=== PATIENT | female | born 1970 | race Caucasian/White ===

== ENCOUNTER 2016-12-25 06:34 | Day surgery (SDC) | payer OTHER ==
[2016-12-25] VITALS (12 sets, daily range): BP systolic 117–143; BP diastolic 62–96; PULSE 70–85; RESP 1–18; O2SAT 97–100
[~2016-12-25] VITALS: Ht 162.6 cm; Wt 62.1 kg
[2016-12-25] MEDS: Lactated Ringer's 1,000 ML IV SCH ×2 (06:14→08:19)
[~2016-12-25 06:34] MED LIST: ALPR0.5T8 PO; ASPI-973 PO; BUPR300T51 PO; CeFAZolin Inj 2 GM in IV Premix 1 EACH IV ONE; FERR325T39 PO; OMEP20CA11 PO; SULF1TAB34 PO
[2016-12-25] MEDS ORDERED: Rocuronium 10 mg/mL 5 mL Inj ONE (06:35)
[2016-12-25] MEDS ORDERED: fentaNYL-PF 50 mCg/mL 2 mL Inj ONE (06:35)
[2016-12-25] MEDS ORDERED: Glycopyrrolate 0.2 mg/mL 5 mL Inj ONE (06:35)
[2016-12-25] MEDS ORDERED: Dexamethasone 4 mg/mL Inj ONE (06:35)
[2016-12-25] MEDS ORDERED: Neostigmine 1 mg/mL 5 mL Inj ONE (06:35)
[2016-12-25] MEDS ORDERED: Propofol 10,000 mCg/mL 20 mL Inj ONE (06:35)
[2016-12-25] MEDS ORDERED: CeFAZolin Inj 2 gm / 50mL D5W IV ONE (06:42)
--- NOTE | 2016-12-25 08:23 | PCM.HPANE ---
Patient Data Surgeon Admitting Provider: Attending Provider:Nereida Luevano MD Primary Care Physician:Katheryn Rogel PA-C Other Provider: Reason for Visit Umbilical Hernia Ht/WT & BMI Height (Feet): 5 Height (Inches): 4.00 Weight (Kilograms): 62.1 Body Mass Index 23.00 Allergies Coded Allergies: doxycycline (Verified Allergy, Unknown, 12/23/16) hydroxyzine (Verified Allergy, Unknown, 12/23/16) latex (Verified Allergy, Unknown, 12/23/16) Past Anesthesia History Anesthesia History: Positive for:: Anesthesia Reactions (vomiting post surgery for bone in throat- not helped by meds), Denies:: Abnormal Airway, Difficult Intubation, Fam Anesthesia Reaction Diabetes History Hx Diabetes?: No MRSA MRSA: No Medications Blood Thinner: Aspirin Hypertension Medication: No Home Meds Incl Beta Angely: No Reported Medications Omeprazole 20 Mg Capsule.dr40 Mg PO DAILY Ref 0 12/23/16 Sulfamethoxazole/Trimeth 400-80 mg (Bactrim 400-80 mg)1 Each Tablet1 Tablet PO BID Ref 0 12/23/16 Ferrous Sulfate (Iron)325 Mg [id number] Mg PO DAILY 12/23/16 Bupropion ER (Wellbutrin XL)300 Mg Tab.er.[id number] Mg PO DAILY Ref 0 12/23/16 Aspirin 81 Mg [id number] Mg PO DAILY Ref 0 12/23/16 Alprazolam 0.5 Mg Tablet0.5 Mg PO BID PRN For Anxiety Ref 0 12/23/16 History HEENT History: Positive for:: TMJ (wears nightguard) Denies:: Abnormal Airway Cataracts Difficult Intubation Dysphagia Glaucoma Hearing Problem Sinus Problem Cardiovascular History: Positive for:: Heart Murmur (from childhood) Denies:: AICD Abdominal Aortic Aneurism Atrial Fibrillation Cardiac Surgery Chest Pain Congestive Heart Failure Coronary Artery Disease Edema Hypertension Irregular Heartbeat Pacemaker Peripheral Vascular Rheumatic Fever Thrombophlebitis Valvular Heart Disease Hx of Respiratory Problem?: No Respiratory History: Denies:: Asthma COPD Emphysema Oxygen Administration Pneumonia Tuberculosis Use of C-PAP Machine Use of Inhalers / NEBS Hx Neurologic Problems?: Yes Neurological History: Positive for:: CVA (at age 19- stroke vs complicate migraine) Headaches (migraines during ) Denies:: Dizziness Multiple Sclerosis Parkinson's Disease Seizures TIA Hx of GI Problems?: Yes Gastrointestinal History: Positive for:: Gastroesphageal Reflux Heartburn Denies:: Cirrhosis Diverticulitis Gall Bladder Disease Gastrointestinal Bleeding Hepatitis Hiatal Hernia Liver Disease Other GI Pertinent History: recurrent umbilical hernia current admission problem Hx of Problems?: No Genitourinary History: Denies:: Kidney Stones Urinary Tract Infection Female Hx: Denies:: Currently Problems with Breasts? Skin History: Denies:: History Skin Disorders? Pressure Ulcers Hx Musculoskeletal Problems?: No Musculoskeletal History: Denies:: Back Injury Degenerative Joint Fibromyalgia Musculoskeletal Trauma Myasthenia Gravis Osteoarthritis Rheumatoid Arthritis Systemic Lupus Hx of Psycho/Social Problems?: Yes Psycho Social History: Positive for:: Anxiety Denies:: Hx Depression Hx Surgeries?: Yes (D+C, C sections, umb hernia, tubal, resection oral bone ) Hx Any Other Health Problems?: Yes Other History: Denies:: Cancer Thyroid Disease History Blood Transfusions: Positive for:: Accept Blood Products? Denies:: Blood Transfusions Hx Diabetes: No Hx Alcohol Use: YesAlcoholic Drinks Per Day: 2-3 drinks weeklyHx Substance Use : NoHave You Smoked inLast 12 mo: No Stop/Bang S-Snoring: Do You Snore Loudly: No T-Tired: feel tired, fatigued: No O-Obsered: Observed not breath: No P-Blood Pressure: treated: No B- Body Mass Index > 35 kg/m2: No A- Age over 50: No N- Neck Large Circumference: No G- Gender Male: No AMRITA Total Score: 0 AMRITA Risk Assessment: Low Risk, <3 Yes Risk Assessment Category Category 1A: Patient has history of documented sleep apnea, and HAS NOT received any narcotic, sedative or anesthesia administration during this stay. Category 1B: Patient has history of documented sleep apnea, and HAS received any narcotic , sedative or anesthesia administration during this stay Category 2: Patient has SUSPECTED Obstructive Sleep Apnea, and HAS received any narcotic , sedative or anesthesia administration during this stay. Category 3: Patient has SUSPECTED Obstructive Sleep Apnea and HAS NOT received narcotic, sedative or anesthesia administration during this stay. Category 4: Outpatient in Procedural Areas with known sleep apnea or who screen positive for High Risk via the STOP/BANG questionnaire. Exam Exam Vital Signs Vital Signs Date Time Temp Pulse Resp B/P Pulse Ox O2 Delivery O2 Flow Rate FiO2 12/25/16 07:11 36.3 84 16 121/71 100 Room Air General Appearance: Alert HEENT/AIRWAY: MP 1 Lungs: Clear to Auscultation Heart: Exam Unremarkable Meds/Labs/Diagnostics Admission Meds Current Medications Lactated Ringer's (Lr) 1,000 ml @ 120 mls/hr [id number] IV Last administered on t 06:14; Start 12/25/16 at 05:00; Stop 12/25/16 at 13:19 Plan Impression Patient chart reviewed, patient interviewed and anesthestic plan with risks, benefits, and alternatives discussed, and informed consent obtained. NPO Status: 12/24 at 1999 ASA Physical Status: ASA2 Mod Systemic Disease Anesthetic Plan: GA Bene/Risks/Altern/Consents: Yes HP Complete Prior to Induction: Yes Fady Nguyen MD Dec 25, 2016 08:23
[2016-12-25] MEDS ORDERED: Lactated Ringer's 500 ML IV PRN (08:47)
[2016-12-25] MEDS ORDERED: Lactated Ringer's 1,000 ML IV SCH (08:47)
[2016-12-25] MEDS ORDERED: Dexamethasone 4 mg/mL Inj IVPUSH PRN (08:50)
[2016-12-25] MEDS ORDERED: Bupivacaine-MPF 0.5% W/EPI 30 mL Inj INFILTRATE ONE (08:50)
[2016-12-25] MEDS ORDERED: MetoCLOpramide 5 mg/mL 2 mL Inj IVPUSH PRN (08:50)
[2016-12-25] MEDS ORDERED: EPHEDrine Sulfate 50 mg/mL Inj IVPUSH PRN (08:50)
[2016-12-25] MEDS ORDERED: Ondansetron 2 mg/mL 2 mL Inj IVPUSH PRN (08:50)
[2016-12-25] MEDS ORDERED: Labetalol 5 mg/mL 4 mL Inj IV PRN (08:50)
[2016-12-25] MEDS ORDERED: Phenylephrine 10,000 mCg/mL Inj IVPUSH PRN (08:50)
[2016-12-25] MEDS ORDERED: Atropine 0.4 mg/mL Inj IVPUSH PRN (08:50)
--- NOTE | 2016-12-25 10:11 | PCM.ANEP1 ---
Post Anesthesia Phase 1 PACU Phase 1 Assessment Vital Signs Vital Signs Date Time Temp Pulse Resp B/P Pulse Ox O2 Delivery O2 Flow Rate FiO2 12/25/16 07:11 36.3 84 16 121/71 100 Room Air Anesthetic Administered: GA Level of Alertness: Drowsy, not talking HENDERSON's with Equal Strength: Yes Pain: No Nausea or Vomiting: No Airway Device: Endotrachial Tube Oxygen Delivery: Nasal Cannula Lungs: Clear to Auscultation Dermatome Level: Full Sensation Summary doing well p 96 sat 100 t 36.1 142/96 Fady Nguyen MD Dec 25, 2016 10:10
[2016-12-25] MEDS ORDERED: oxyCODONE-Acetamin 5-325 mg Tablet PO PRN (10:15)
[2016-12-25] MEDS: fentaNYL-PF 50 mCg/mL 2 mL Inj IVPUSH PRN ×2 (10:21→10:30)
--- NOTE | 2016-12-25 10:25 | PCM.SURGOP ---
Surgical Operative Report Date of Service: Dec 25, 2016 Pre Operative Diagnosis Recurrent umbilical hernia Post Operative Diagnosis Recurrent umbilical hernia 2 Procedure: Laparoscopic recurrent umbilical hernia repair Surgeon and Blue Line Trimmer: Surgeon: Nereida Luevano M.D. Assistants: Christiano Bailye PA-C; Susanna Perez, MS3 Indication for Procedure This is a 46-year-old woman who underwent primary umbilical hernia repair several years ago at a hospital on the [facility]. She experienced a recurrent bulge and tenderness at the umbilicus, particularly when performing vigorous activities like chopping wood. She therefore desired repair. Findings: 1. There were 2 tiny defects. The first was at the level of the umbilicus, 0.5 cm fascial defect. The second was 1 cm inferior to the first, 0.5 cm fascial defect. 2. Primary closure of the fascial defects was performed. Mesh was placed with 5 cm of overlap in all directions. Procedure Details The patient was brought to the operating room and placed in supine position. General endotracheal anesthesia was smoothly induced. Antibiotics were infused. A warming blanket and SCDs were placed. The operative field was prepped and draped in sterile fashion. A Chau had been placed. A pause was performed to confirm the correct patient, procedure, site, and side. A Veress needle was placed in the left upper quadrant of the abdomen was insufflated. An Optiview trocar was then used with an 11 mm port to enter the abdomen. Two additional 5 mm ports are placed in the left midabdomen and left lower quadrant. 2 umbilical hernia defects were identified, one at the level of the umbilicus and the other 1 cm inferior to it. Each was 0.5 cm in size, with no incarceration of fat or viscera. A single interrupted 2-0 PDS stitch was placed to close both defects using a laparoscopic fascial closure device. Once the defects were closed, a piece of mesh was fashioned to place deep to them. A circular 11 cm Ventralight dual sided mesh was chosen using the echo positioning system. It was inserted into the abdomen and positioned with the umbilical hernia defect at the center of it. There was a small amount of bleeding from the umbilical hernia site, which was controlled with 10 minutes of tamponade and a small amount of electrocautery. A laparoscopic absorbable tacking device was then used to place tacks at 1 cm intervals around the perimeter of the mesh. The echo positioner was removed, and a second row of tacks was placed inside of the first row. Hemostasis was confirmed. Half percent Marcaine with epinephrine was infused at all port sites. The left upper quadrant port site was closed with an interrupted 0 PDS stitch using the laparoscopic fascial closure device. The abdomen was desufflated. Skin was closed with 4-0 Monocryl. Sterile dressings were placed. All sponge, needle, and instrument counts were correct at the end of the case. The patient was awakened from general anesthesia and taken to the postoperative care unit in good condition. Complications There were no periprocedural complications identified. Surgical Specimen Removed: No Specimen sent to Pathology: No Anesthetic Plan: GA Grafts, Implants: Implants-See Implant Record Output, Estimated Blood Loss: 10 (ml) Blood Administration during roth: Nereida Fontenot MD Dec 25, 2016 10:25
[2016-12-25] MEDS: HYDROmorphone 1 mg/mL Inj IVPUSH PRN ×2 (10:30→10:35)
--- NOTE | 2016-12-25 12:17 | PCM.ANEP2 ---
Post Anesthesia Evaluation ASA/CMS Post Anesthesia VS in Patient's Normal Range?: Yes Resp Stable; Airway Patent?: Yes CV Function & Hydration Stable: Yes Mental Status Recovered?: Yes Pain control Satisfactory?: Yes N/V Control Satisfactory?: Yes Fady Nguyen MD Dec 25, 2016 12:17
[2016-12-25] MEDS ORDERED: oxyCODONE-Acetamin 5-325 mg Tablet PO ONE (12:46)
== END 2016-12-25 23:59 | disposition home or self-care (01) ==
LOC: SAS 06:34
PROVIDERS: ATTEND Surgery
DX: K42.9 Umbilical hernia without obstruction or gangrene (principal)
CPT/HCPCS: 49652; C1781; J0690; J1100; J1170; J2250; J2710; J3010; J7120